=== PATIENT | female | born 1985 | race Caucasian/White ===

== ENCOUNTER 2018-11-18 10:24 | Emergency (ER) | payer MEDICAID, SELFPAY | END 2018-11-18 11:20 | disposition home or self-care (01) | LOC: NAV ERS 10:24 | DX: S50.811A Abrasion of right forearm, initial encounter (principal); L25.9 Unspecified contact dermatitis, unspecified cause; F41.9 Anxiety disorder, unspecified; F32.9 Major depressive disorder, single episode, unspecified; Z87.891 Personal history of nicotine dependence; X58.XXXA Exposure to other specified factors, initial encounter | CPT/HCPCS: 99282 ==

== ENCOUNTER 2020-12-06 15:19 | Emergency (ER) | payer BC, SELFPAY | END 2020-12-06 15:55 | disposition home or self-care (01) | LOC: NAV ERS 15:19 | DX: S81.051A Open bite, right knee, initial encounter (principal); Z87.891 Personal history of nicotine dependence; W55.01XA Bitten by cat, initial encounter | CPT/HCPCS: 99283 ==

== ENCOUNTER 2023-03-12 12:26 | Emergency (ER) | payer BC | END 2023-03-12 13:14 | disposition home or self-care (01) | LOC: NAV ERS 12:26 | DX: H65.91 Unspecified nonsuppurative otitis media, right ear (principal); I10 Essential (primary) hypertension; Z87.891 Personal history of nicotine dependence | CPT/HCPCS: 99282 ==